=== PATIENT | female | born 1990 | race Hispanic/Latino ===

== ENCOUNTER 2017-07-18 22:39 | Emergency (ER) | payer OTHER ==
[2017-07-19 01:09] LABS: APPEARANCE,URINE Clear (CLEAR); BILIRUBIN,URINE Negative (NEGATIVE); COLOR,URINE Yellow (YELLOW); GLUCOSE, URINE (UA) Negative (NEGATIVE); KETONES,URINE Negative (NEGATIVE); LEUKOCYTE ESTERASE ,URINE Moderate (NEGATIVE); NITRATE,URINE Negative (NEGATIVE); OCCULT BLOOD,URINE Moderate (NEGATIVE); PH,URINE 6.5 (5.0-8.0); PROTEIN,URINE Negative (NEGATIVE)
[2017-07-19 01:19] LABS: BACTERIA,URINE Moderate /HPF (None Seen); MUCUS,URINE Few LPF (None Seen); RENAL EPITHELIAL CELLS,URINE Moderate /HPF (None Seen); SQUAMOUS EPITHELIAL CELL,UR Few /HPF (0-2)
[2017-07-19 01:20] LABS: HCG,QUAL RESULT NEGATIVE (NEGATIVE)
[2017-07-19] MEDS ORDERED: CEFTRIAXONE SODIUM 1 GM ONE (01:27)
[2017-07-19] MEDS ORDERED: LIDOCAINE HCL-MPF 1% 2ML VIAL ONE (01:27)
[2017-07-19] MEDS ORDERED: IBUPROFEN 600 MG TABLET ONE (01:31)
== END 2017-07-19 01:51 | disposition home or self-care (01) ==
LOC: EDH 22:39
DX: N39.0 Urinary tract infection, site not specified (principal); Z88.6 Allergy status to analgesic agent; Z98.890 Other specified postprocedural states
CPT/HCPCS: 81001; 81025; 87088; 87186; 96372; 99284; J0696; J3490

== ENCOUNTER 2021-08-02 21:04 | Emergency (ER) | payer OTHER ==
[~2021-08-02] VITALS: Ht 157.5 cm; Wt 70.3 kg
[2021-08-02 21:06] VITALS: BP 163/79
[2021-08-02] MEDS ORDERED: PNV1TABL17 PO (23:02)
[2021-08-02] MEDS ORDERED: GUAIF10 PO (23:02)
[2021-08-02] MEDS ORDERED: CETI10TA57 PO (23:02)
[2021-08-02] MEDS ORDERED: ONDA4TAB10 PO (23:02)
== END 2021-08-02 23:17 | disposition home or self-care (01) ==
LOC: EDH 21:04
DX: U07.1 COVID-19 (principal)
CPT/HCPCS: 87635; 87804 ×2; 87880; 99283; C9803

== ENCOUNTER 2021-09-14 07:51 | Emergency (ER) | payer OTHER ==
[~2021-09-14] VITALS: Ht 157.5 cm; Wt 65.8 kg
[~2021-09-14 07:51] MED LIST: CETI10TA57 PO; GUAIF10 PO; ONDA4TAB10 PO; PNV1TABL17 PO
[2021-09-14] MEDS ORDERED: HYD25 PO (09:12)
[2021-09-14] MEDS ORDERED: HYDROXYZINE 25 MG TABLET PO ONE (09:30)
[2021-09-14 09:31] LABS: BASOPHILS % (AUTO) 0.6 % (0.0-5.0); EOSINOPHILS % (AUTO) 1.9 % (0.0-8.0); HEMATOCRIT 45.8 % (36-48); LYMPHOCYTES % (AUTO) 18.6 % (21.0-51.0); MEAN CORPUSCULAR HEMOGLOBIN 31.6 pg (27.0-33.0); MEAN CORPUSCULAR HGB CONC 34.1 g/dL (32.0-36.0); MEAN CORPUSCULAR VOLUME 92.7 fL (79-99); MONOCYTES % (AUTO) 6.7 % (3.0-13.0); NEUTROPHILS % (AUTO) 71.8 % (40.0-77.0); PLATELET COUNT (AUTO) 270 K/uL (130-400); RED BLOOD CELL COUNT(AUTO) 4.94 MIL/uL (4.00-5.50); RED CELL DISTRIBUTION WIDTH 12.6 % (11.0-15.5); WHITE BLOOD COUNT (AUTO) 11.7 K/uL (4.8-10.8)
[2021-09-14 09:38] LABS: APPEARANCE,URINE Clear (CLEAR); BILIRUBIN,URINE Negative (NEGATIVE); COLOR,URINE Yellow (YELLOW); GLUCOSE, URINE (UA) Negative (NEGATIVE); KETONES,URINE Negative (NEGATIVE); LEUKOCYTE ESTERASE ,URINE Large (NEGATIVE); NITRATE,URINE Negative (NEGATIVE); OCCULT BLOOD,URINE Large (NEGATIVE); PH,URINE 7.5 (5.0-8.0); PROTEIN,URINE Negative (NEGATIVE); UROBILINOGEN,URINE 0.2 mg/dL (0.2-1.0)
[2021-09-14 09:47] LABS: ALBUMIN 4.5 g/dL (3.5-5.0); CREATININE 0.7 mg/dL (0.5-1.5); TOTAL PROTEIN, SERUM 8.7 g/dL (6.0-8.3)
[2021-09-14 09:54] LABS: BACTERIA,URINE Moderate /HPF (None Seen); RBC,URINE 0-1 /HPF (0-1)
[2021-09-14] MEDS ORDERED: KCL 20 MEQ ERTAB PO ONE (10:00)
[2021-09-14] MEDS ORDERED: CEPHALEXIN 500 MG CAPSULE PO ONE (10:00)
[2021-09-14 10:17] VITALS: BP 152/97
[2021-09-14] MEDS ORDERED: CEPH500B PO (10:21)
== END 2021-09-14 10:41 | disposition home or self-care (01) ==
LOC: EDH 07:51
DX: F41.0 Panic disorder [episodic paroxysmal anxiety] (principal); Z79.899 Other long term (current) drug therapy
CPT/HCPCS: 36415; 80053; 81001; 84484; 85025; 87077; 87088; 87186; 93005